=== PATIENT | male | born 1955 | race Caucasian/White ===

== ENCOUNTER → 2016-08-11 | Outpatient (CLI) | payer BC ==
[~2016-08-11] MED LIST: ASA325 MG PO; CELEBREX200 MG PO; COLACE-DPS100 MG PO; COMPAZINE10 MG PO; CRESTOR10 MG PO; DULCOLAX-DPS5 MG PO; FLEXERIL-DPS10 MG PO; FLOVENT 44MCG10.6 GM NS; IRON325 M1 PO; MAALOX DPS30 ML PO; MILK OF MAGNESI10 ML PO; OXY IR DPS5 MG PO; PROTONIX40 MG PO; SENOKOT S1 TAB PO; TYLENOL DPS325 MG PO; ULTRAM DPS50 MG PO; VITAMIN D31000 UNIT PO
== END | disposition home or self-care (01) ==
LOC: RAD.S 07-08 11:35 → PTH.S 07:52
DX: Z08 Encounter for follow-up examination after completed treatment for malignant neoplasm (principal); Z90.5 Acquired absence of kidney; Z85.528 Personal history of other malignant neoplasm of kidney